=== PATIENT | male | born 1990 | race Caucasian/White ===

== ENCOUNTER 2025-01-26 09:42 | Outpatient (CLI) | payer OTHER, SELFPAY | END 2025-01-26 09:43 | disposition home or self-care (01) | PROVIDERS: PCP Family Medicine; Visit Provider Nurse Practitioner Adult Health | DX: L03.012 Cellulitis of left finger (principal); S61.259A Open bite of unspecified finger without damage to nail, initial encounter; W55.01XA Bitten by cat, initial encounter | CPT/HCPCS: 73120 ==